=== PATIENT | male | born 1960 | race Caucasian/White ===

== ENCOUNTER 2016-06-26 10:23 | Emergency (ER) | payer OTHER ==
[2016-06-26] MEDS ORDERED: OPTIRAY 350 100 ML VIAL HMH IV ONE (10:24)
[2016-06-26] MEDS ORDERED: ONDANSETRON 4 MG VIAL ONE (11:41)
[2016-06-26] MEDS ORDERED: SODIUM CHLORIDE 0.9% 1,000 ML ONE (11:41)
== END 2016-06-26 15:15 | disposition home or self-care (01) ==
LOC: ER 10:23
DX: K57.92 Diverticulitis of intestine, part unspecified, without perforation or abscess without bleeding (principal)
CPT/HCPCS: 36415; 74177; 80053; 81003; 83690; 85025; 96361; 96374; 99284; J2405; Q9967